=== PATIENT | male | born 1955 | race Caucasian/White ===

== ENCOUNTER 2017-02-23 16:01 | Emergency (ER) | payer OTHER ==
[2017-02-23 16:06] VITALS: RESP 16; TEMP 97.9
--- NOTE | 2017-02-23 16:38 | EDPHY ---
H & P Stated Complaint: Lac to palm of R hand Source: Patient - Personal History Current Tetanus Diphtheria and Acellular Pertussis (TDAP): Yes - Medical/Surgical History Other PMH: neg per pt - Social History Smoking Status: Never smoked HPI/ROS: HPI CHIEF COMPLAINT: Hand laceration HISTORY OF PRESENT ILLNESS: This patient very pleasant 61-year-old male, denies any significant medical history does not take any daily medications he presents emergency room with a laceration to the palm of the right hand. He states he was hiking he tripped and fell put his hand down onto his stump there was a piece of wood sticking out of the stump and lacerated his right hand. The laceration is the web space of the thumb and index finger. Patient does tell me his tetanus shot is up-to-date. Past Medical History: Denies medical history Past Surgical History: Denies surgical history Social History: Denies daily use of drugs alcohol tobacco products. Family History: Noncontributory ROS REVIEW OF SYSTEMS: A comprehensive 10 point review of systems is otherwise negative aside from elements mentioned in the history of present illness. Exam Constitutional triage nursing summary reviewed, vital signs reviewed, awake/ alert. Eyes normal conjunctivae and sclera, EOMI, PERRLA. HENT normal inspection, atraumatic, moist mucus membranes, no epistaxis, neck supple/ no meningismus, no raccoon eyes. Respiratory clear to auscultation bilaterally, normal breath sounds, no respiratory distress, no wheezing. Cardiovascular rate normal, regular rhythm, no murmur, no edema, distal pulses normal. Gastrointestinal soft, non-tender, no rebound, no guarding, normal bowel sounds, no distension, no pulsatile mass. Genitourinary no CVA tenderness. Musculoskeletal no midline vertebral tenderness, full range of motion, no calf swelling, no tenderness of extremities, no meningismus, good pulses, neurovascularly intact. Skin right hand: Palmar surface there is a 4-5 cm laceration present and skin tear. No gross contamination visualized. He is neurovascular intact good cap refill, good radial pulse. 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 Full range of motion. pink, warm, & dry, no rash Neurologic awake, alert and oriented x 3, AAOx3, moves all 4 extremities equally, motor intact, sensory intact, CN II-XII intact, normal cerebellar, normal vision, normal speech. Psychiatric normal mood/affect. Heme/Lymph/Immune no lymphadenopathy. Differential Diagnosis: Includes but is not limited to in a particular order soft tissue injury, soft tissue contusion, foreign body, need for wound care, laceration repair Medical Decision Making: Plan for this patient's tetanus shot is up-to-date, x- ray right hand, clean his wound copiously explored for foreign bodies close laceration placed on antibiotics prophylactically. Re-evaluation: ED x-ray right hand: Negative for acute fracture foreign body. (Stanley Oneill ) Constitutional: Initial Vital Signs Temperature (C) 36.6 C 02/23/17 16:02 Heart Rate 70 02/23/17 16:02 Respiratory Rate 16 02/23/17 16:02 Blood Pressure 132/84 H 02/23/17 16:02 O2 Sat (%) 97 02/23/17 16:02 O2 Delivery Mode Room Air Allergies/Adverse Reactions: No Known Allergies Allergy (Unverified 02/23/17 16:05) Home Medications: Medication Instructions Recorded Cephalexin [Keflex] 500 mg PO Q6H #28 cap 02/23/17 Medical Decision Making - Diagnostics Imaging Results: Imaging Impressions Hand X-Ray 02/23/17 16:40 Impression: No acute osseous findings. Procedures: Procedure: Laceration repair. I was requested by Dr. Oneill to perform wound closure I explained the indications, risks and benefits for both laceration repair and anesthetic administration. Verbal consent was obtained from the patient . The laceration on the right hand was anesthetized using 0.5% bupivicaine without epinephrine . After anesthetic administered the patient was observed for a period of time and had no apparent adverse effects. The wound was cleaned, prepped, draped in normal sterile fashion and explored to its base. No foreign body seen, no foreign bodies palpated. There were no deep structures involved. No tendon injury was identified. The wound was repaired with 9 simple interrupted 5 O Prolene suture. The wound repair was complex. The procedure was performed by myself. Patient has been informed that scarring will occur, although efforts have been made to minimize this. (Francois Pop) - Data Points Medications Given: Discontinued Medications Cephalexin HCl (Keflex) 500 mg PO EDNOW ONE PRN Reason: Protocol Stop: 02/23/17 16:43 Last Admin: 02/23/17 16:54 Dose: 500 mg Departure - Departure Disposition: Home, Routine, Self-Care Clinical Impression: Laceration Condition: Good Instructions: Care For Your Stitches (ED), Laceration (ED) Additional Instructions: 1. Keep wound clean, dry, protected. 2. Return emergency room if you have any worsening symptoms or signs of infection this includes redness, swelling, pain, drainage, pus. 3. Your sutures need to be removed in approximately 12 days. 4. Take antibiotics as prescribed. Referrals: MELANIE BOLTON [Primary Care Provider] - As per Instructions Prescriptions: Cephalexin [Keflex] 500 mg PO Q6H #28 cap
[2017-02-23] MEDS ORDERED: CEPHALEXIN 500 MG CAP PO ONE (16:42)
[2017-02-23 17:48] VITALS: BP 134/77; PULSE 64; O2SAT 95
== END 2017-02-23 17:47 | disposition home or self-care (01) ==
PROC: 0HQFXZZ Repair Right Hand Skin, External Approach (ICD-10-PCS; principal; 2017-02-23)
DX: S61.411A Laceration without foreign body of right hand, initial encounter (principal); W01.0XXA Fall on same level from slipping, tripping and stumbling without subsequent striking against object, initial encounter; Y93.01 Activity, walking, marching and hiking